=== PATIENT | male | born 1985 | race Caucasian/White ===

== ENCOUNTER 2024-12-20 17:29 | Emergency (ER) | payer OTHER, SELFPAY ==
[2024-12-20 17:41] VITALS: BP 129/95; PULSE 91; TEMP 36.8; O2SAT 98; BMI 38.0
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
[2024-12-20] MEDS: KETOROLAC TROMETHAMINE 60 MG/2 ML VIAL IM (19:36)
== END 2024-12-20 21:51 | disposition home or self-care (01) ==
PROVIDERS: Emergency Provider Emergency Medicine; PCP Family Medicine
DX: S29.012A Strain of muscle and tendon of back wall of thorax, initial encounter (principal); V49.9XXA Car occupant (driver) (passenger) injured in unspecified traffic accident, initial encounter
CPT/HCPCS: 70450; 72072; 72125; 96372; 99284; J1885